=== PATIENT | male | born 1950 | race Caucasian/White ===

== ENCOUNTER → 2018-03-24 | Outpatient (CLI) | payer OTHER ==
[~2018-03-24] MED LIST: ANTIVERT/2525 MG PO; CIPRO500 MG PO; FLAGYL500 MG PO; METFORMIN500 MG PO; MOTRIN400 MG PO; ZESTRIL,PRINIVI10 MG PO; ZITHROMAX Z PA250 MG PO
== END | disposition home or self-care (01) ==
LOC: RAD 08:37
DX: M25.552 Pain in left hip (principal)

== ENCOUNTER → 2018-12-21 | Day surgery (SDC) | payer OTHER ==
[~2018-12-21] VITALS: Ht 168 cm; Wt 83.0 kg
[~2018-12-21] MED LIST changes: +AMLODIPINE BESY10 MG PO; +AMLODIPINE BESYL5 MG PO; +ASPIRIN81 M1 PO; +CELECOXIB200 M1 PO; +ELIQUIS5 M1 PO; +GLIMEPIRIDE4 M1 PO; +GOOD NEIGHBOR M25 M1 PO; +LISINOPRIL30 MG PO; +LOPRESSOR25 MG PO; +METFORMIN HCL1000 M1 PO; +METFORMIN HYDR500 MG PO; +METOPROLOL25 MG PO; +PROPAFENONE HC150 MG PO; +VALIUM2 MG PO; +VITAMIN D32000 UNI1 PO; +Zestril,Prinivi40 MG PO
--- NOTE | ~2018-12-21 | O ---
[place], [place] OPERATIVE NOTE NAME: BRENDA ALSTON UNIT #: [id number] ROOM: DOCTOR: MICHELLE GARCIA MD BIRTHDATE: [birth year] DOS: GASTROENDOSCOPIC REPORT: INDICATION: This is a 68-year-old patient who was presented with chief complaint of diarrhea, status post sigmoid segmental resection status post 5 BM per day, history of diabetes, on metformin, which has been changed to extended release tablet. ALLERGIES: No known medication. FAMILY HISTORY: Noncontributory. PAST SURGICAL HISTORY: Gastric tumor bowel resection. PAST MEDICAL HISTORY: Hypertension, diabetes, hyperlipidemia, atrial fibrillation. SOCIAL HISTORY: Nonsmoker, nonalcohol consumer. PROCEDURE: Today's procedure part of investigation is colonoscopy plus random biopsy. PREMEDICATION: Propofol. SCOPE: Olympus folding colonoscope 10L video. REPORT: After putting the patient in left lateral position and application of lubricant to the scope, the scope was introduced. Thereafter, under direct visualization, advanced through the length of colon without difficulty. Base of the cecum explored, appendiceal orifice identified, ileocecal valve was defined, was gradually withdrawn from ascending, transverse, descending colon back to the sigmoid anatomy. Anastomotic site identified. Random biopsies of colon for collagenous colitis was obtained. The patient extubated, tolerated the procedure well. IMPRESSION: Normal colonoscopic examination, status post sigmoid resection. Otherwise, status post random biopsy ruling out collagenous colitis. Furthermore, the patient with a history of diabetes mellitus, on metformin, which could be responsible for his diarrhea stooling. PLAN AND DISCUSSION: We will change the metformin to metformin extended tablet 1000 mg b.i.d. Furthermore, if does not respond, then we will add Questran 1 pack a day. Furthermore, avoiding excessive dairy products if possible and clinical reassessment and routine followup with you in office, p.r.n. visit with us in GI Clinic. He is to start his Celebrex, aspirin and Eliquis from tomorrow. [place], [place] OPERATIVE NOTE NAME: BRENDA ALSTON UNIT #: [id number] ROOM: DO[facility]: [birth year] BRETT GARCIA MD CM:CAPOECORD:OPERATIVE NOTE 0845 BRETT GARCIA MD 12/21/18 0910 interface
[2018-12-21 07:54] VITALS: BP 194/87
[2018-12-21 08:39] VITALS: BP 123/56
[2018-12-21 09:10] VITALS: BP 141/73
== END | disposition home or self-care (01) ==
LOC: SDC 12-19 14:45
DX: K63.89 Other specified diseases of intestine (principal); I10 Essential (primary) hypertension; I25.10 Atherosclerotic heart disease of native coronary artery without angina pectoris; E11.9 Type 2 diabetes mellitus without complications; I25.2 Old myocardial infarction; J45.909 Unspecified asthma, uncomplicated; Z79.82 Long term (current) use of aspirin; Z98.890 Other specified postprocedural states; Z79.899 Other long term (current) drug therapy; Z90.49 Acquired absence of other specified parts of digestive tract; Z83.3 Family history of diabetes mellitus

== ENCOUNTER 2019-04-05 22:17 | Emergency (ER) | payer OTHER ==
[~2019-04-05] VITALS: Ht 167.6 cm; Wt 83.9 kg
--- NOTE | ~2019-04-05 | EKG ---
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
[~2019-04-05 22:17] MED LIST changes: -VALIUM2 MG PO
[2019-04-05 22:41] LABS: BASO % 0.5 % (0.0-1.0); EOS # 0.2 10*3/uL (0.0-0.4); EOS % 2.7 % (1.0-4.0); HEMATOCRIT 38.5 % (42.0-52.0); HEMOGLOBIN 12.1 g/dl (14.0-18.0); LYMPH # 2.4 10*3/uL (1.3-4.4); LYMPH % 32.4 % (27.0-41.0); MEAN CELL VOLUME 72.6 fl (80.0-94.0); MEAN CORPUSCULAR HGB 22.8 pg (27.0-31.0); MEAN CORPUSCULAR HGB CONC 31.4 g/dl (33.0-37.0); MEAN PLATELET VOLUME 10.4 fl (9.6-12.3); MONO # 0.7 10*3/uL (0.1-1.0); MONO % 8.7 % (3.0-9.0); NEUT # 4.1 10*3/uL (2.3-7.9); NEUT % 54.9 % (47.0-73.0); PLATELET COUNT AUTOMATED 223 10*3/uL (130-400); RED CELL DISTRI WIDTH 14.9 % (0-14.5); WHITE BLOOD COUNT 7.5 10*3/uL (4.8-10.8)
[2019-04-05 22:51] LABS: ACT PARTIAL THROMBO TIME 23.7 SECONDS (20.0-32.1)
[2019-04-05 22:58] LABS: ALKALINE PHOSPHATASE 66 U/L (45-117); BUN 25 mg/dl (7-24); CHLORIDE 104 mmol/L (98-107); CREATININE 1.45 mg/dL (0.70-1.30); POTASSIUM 3.7 mmol/L (3.5-5.1); SGOT/AST 15 IU/L (3-35); SGPT/ALT 24 U/L (12-78); SODIUM 139 mmol/L (136-145); TOTAL PROTEIN 7.4 gm/dL (6.4-8.2)
[2019-04-05 22:59] LABS: TROPONIN I < 0.015 ng/ml (<0.045)
[2019-04-06] MEDS ORDERED: VALIUM2 MG PO (00:54)
== END 2019-04-06 01:10 | disposition home or self-care (01) ==
LOC: ED 22:17
PROVIDERS: Emergency Medicine
DX: R42 Dizziness and giddiness (principal); R11.2 Nausea with vomiting, unspecified; R79.1 Abnormal coagulation profile; Z79.899 Other long term (current) drug therapy

== ENCOUNTER 2019-06-09 20:34 | Inpatient (IN) | payer OTHER ==
[~2019-06-09] VITALS: Ht 167.6 cm; Wt 79.6 kg
--- NOTE | ~2019-06-09 | O ---
[place], [place] OPERATIVE NOTE NAME: BRENDA ALSTON UNIT #: [id number] ROOM: 520 DOCTOR: RADHA MAI,BRETT BIRTHDATE: [birth year] DOS: 06/12/2019 GASTROENDOSCOPIC REPORT INDICATIONS: The patient has presented with chief complaint of hematemesis. The patient with gastric resection partially, details are ambiguous due to the difficulty in his memory. His does not remember much of the details. PROCEDURE: Today's procedure part of investigation is panendoscopy plus biopsy, photographic series. PREMEDICATION: Propofol. SCOPE: Olympus forward-viewing gastroscope Q10 video. REPORT: After putting the patient in left lateral position and application of lubricant to the scope, the scope was introduced. Thereafter, under direct visualization, advanced through the length of esophagus without difficulty. Gastric pouch was entered. A partial gastrectomy was noticed. Bile reflux gastritis in proximal stomach identified. Biopsy was obtained. Duodenum within normal limits. The scope was gradually withdrawn. The patient extubated, tolerated the procedure well. IMPRESSION: Partial gastrectomy, bile reflux gastritis, status post biopsy. PLAN AND DISCUSSION: Protonix 1 a day, antireflux measures with elevation of the head of bed 6 inches all time, followup as an outpatient. BRETT GARCIA MD CM:OPRECORD:OPERATIVE NOTE 1343 1417 BRETT GARCIA MD 06/12/19 1416 interface
--- NOTE | ~2019-06-09 | EKG ---
[place], [place] ELECTROCARDIOGRAM REPORT NAME: BRENDA ALSTON UNIT #: [id number] ROOM: 520 DOCTOR: CARLITA DRAFT REPORT BIRTHDATE: [birth year] [facility] Test Date: 2019-06-09 Test Time: 20:51:18 Pat Name: BRENDA ALSTON Department: Room: 520 Gender: M Patient Service Coordinator: Jessie Jean-Baptiste : 1950 Requested By: ALTAGRACIA FAM Order Number: [id number] Reading MD: Paras Hall Measurements Intervals [place] Rate: 57 P: 8 MT: 241 QRS: -31 QRSD: 100 T: 111 QT: 439 QTc: 428 Interpretive Statements Sinus rhythm Prolonged MT interval Left axis deviation Nonspecific T abnormalities, lateral leads Compared to ECG 04/05/2019 22:28:18 Left-axis deviation now present T-wave abnormality now present Myocardial infarct finding no longer present Electronically Signed On 06-10-2019 12:32:04 PDT by Paras Hall CM:EKGRPT:ELECTROCARDIOGRAM REPORT 50 1232 ALTAGRACIA FAM MD EPIPHANY DRAFT REPORT ALTAGRACIA FAM MD
--- NOTE | ~2019-06-09 | CON ---
[place], [place] REPORT OF CONSULTATION NAME: BRENDA ALSTON UNIT #: [id number] ROOM: 520 DOCTOR: GERALD GARCIA MDDATELANDMERRY BIRTHDATE: [birth year] DOS: 06/12/2019 GASTROENDOSCOPIC REPORT HISTORY OF PRESENT ILLNESS: The patient is a 68-year-old gentleman who has presented with multiple medical issues among with suspected hematemesis and I have been called in this regard. Initially when he came in, his H and H. was 11 and 38, macrocytic indices. Urinalysis unremarkable. INR 1.1. Lactic acid was 13.3. BUN was 64 and creatinine 2.2, GFR 35. Electrolytes: Potassium was elevated. Liver function tests normal. His H and H remained essentially the same area 10 and 35 about. MRI of the hip, minimal degenerative changes of femoroacetabular joint. Left hip, question of inflammatory erosion of the head of the left femur. All has been appreciated. PAST MEDICAL HISTORY: Associated diabetes, hypertension, Meniere's disease, anemia, diverticulosis, renal insufficiency, and atrial fibrillation. PAST SURGICAL HISTORY: Gastrectomy, partial; throat surgery, and colon resection. SOCIAL HISTORY: Nonsmoker, nonalcohol consumer. FAMILY HISTORY: Noncontributory. MEDICATIONS: List has been reviewed including Celebrex and Eliquis. ALLERGIES: No known medication. REVIEW OF SYSTEMS: HEENT: Denies double vision, blurred vision. RESPIRATORY: Denies acute shortness of breath. CARDIOVASCULAR: Denies acute chest pain. DIGESTIVE SYSTEM: Hematemesis. PHYSICAL EXAMINATION: VITAL SIGNS: Stable. HEENT: Head normocephalic, nontraumatic. Mouth and buccal mucosa benign. NECK: Supple, no thyromegaly, no cervical lymphadenopathy. CHEST: Symmetric anatomy, equal expansion. No wheeze, no rhonchi. HEART: Normal sinus rhythm, no gallop, no murmur. ABDOMEN: Soft. No hepato-organomegaly. Bowel sounds present. EXTREMITIES: No cyanosis, no pedal edema. NEUROLOGIC: Alert and oriented to time, place, and person. IMPRESSION: Nausea, vomiting on Celebrex, on antiplatelets and anticoagulants, status post gastric surgery, ruling out anastomotic site, pathology, i.e., ulceration. Other adjunctive diagnoses as outlined in paragraph of past medical, surgical history including Meniere's disease, left hip pain, anemia, atrial fibrillation and history of vertigo, electrolyte imbalance, renal insufficiency, all has been recognized. [place], [place] REPORT OF CONSULTATION NAME: BRENDA ALSTON UNIT #: [id number] ROOM: [facility] DOCTOR: BRETT GARCIA MD BIRTHDATE: [birth year] PLAN AND DISCUSSION: Endoscopy of upper tract. BRETT GARCIA MD CM:CONSTR:REPORT OF CONSULTATION 1302 1002 JACKIE LIMON.R
[~2019-06-09 20:34] MED LIST changes: +VALIUM2 MG PO
[2019-06-09 20:35] VITALS: BP 182/89
[2019-06-09 21:22] LABS: BASO % 0.5 % (0.0-1.0); EOS # 0.1 10*3/uL (0.0-0.4); EOS % 1.7 % (1.0-4.0); HEMOGLOBIN 11.7 g/dl (14.0-18.0); LYMPH # 1.4 10*3/uL (1.3-4.4); LYMPH % 21.3 % (27.0-41.0); MEAN CELL VOLUME 72.4 fl (80.0-94.0); MEAN CORPUSCULAR HGB 22.3 pg (27.0-31.0); MEAN CORPUSCULAR HGB CONC 30.8 g/dl (33.0-37.0); MEAN PLATELET VOLUME 10.5 fl (9.6-12.3); MONO # 0.5 10*3/uL (0.1-1.0); MONO % 7.1 % (3.0-9.0); NEUT # 4.4 10*3/uL (2.3-7.9); NEUT % 69.1 % (47.0-73.0); PLATELET COUNT AUTOMATED 211 10*3/uL (130-400); RED BLOOD COUNT 5.25 10*6/uL (4.50-5.90); RED CELL DISTRI WIDTH 14.4 % (0-14.5); WHITE BLOOD COUNT 6.4 10*3/uL (4.8-10.8)
[2019-06-09 21:23] LABS: BILIRUBIN NEGATIVE (NEGATIVE); BLOOD TRACE-INTACT (NEGATIVE); CLARITY CLEAR (CLEAR); COLOR YELLOW (YELLOW); GLUCOSE NEGATIVE (NEGATIVE); KETONE TRACE (NEGATIVE); LEUKO ESTERASE NEGATIVE (NEGATIVE); NITRITE NEGATIVE (NEGATIVE); PH 5.5 (5.0-9.0); SPECIFIC GRAVITY 1.025 (1.005-1.030); UROBILINOGEN 0.2 E.U./dl (0.2-1.0)
[2019-06-09 21:28] LABS: EPITHELIAL CELLS 0-2; RBC 0-2 rbc/hpf (0-2)
[2019-06-09 21:40] LABS: ALBUMIN 3.8 gm/dl (3.1-4.5); ALKALINE PHOSPHATASE 68 U/L (45-117); BUN 64 mg/dl (7-24); CHLORIDE 109 mmol/L (98-107); CREATININE 2.23 mg/dL (0.70-1.30); LIPASE 270 U/L (73-393); POTASSIUM 5.3 mmol/L (3.5-5.1); SGOT/AST 11 IU/L (3-35); SGPT/ALT 14 U/L (12-78); SODIUM 138 mmol/L (136-145)
[2019-06-09 21:42] LABS: TROPONIN I < 0.015 ng/ml (<0.045)
[2019-06-10] VITALS: BP 108/53
[2019-06-10] MEDS ORDERED: K-TAB10 MEQ PO (02:28)
[2019-06-10] MEDS ORDERED: TRIAMTERENE-HC1 EACH PO (02:29)
[2019-06-10 06:09] LABS: BASO % 0.7 % (0.0-1.0); EOS # 0.1 10*3/uL (0.0-0.4); EOS % 1.8 % (1.0-4.0); HEMOGLOBIN 10.8 g/dl (14.0-18.0); LYMPH # 2.3 10*3/uL (1.3-4.4); LYMPH % 37.1 % (27.0-41.0); MEAN CELL VOLUME 72.6 fl (80.0-94.0); MEAN CORPUSCULAR HGB 22.4 pg (27.0-31.0); MEAN CORPUSCULAR HGB CONC 30.9 g/dl (33.0-37.0); MEAN PLATELET VOLUME 10.7 fl (9.6-12.3); MONO # 0.5 10*3/uL (0.1-1.0); MONO % 7.7 % (3.0-9.0); NEUT # 3.2 10*3/uL (2.3-7.9); NEUT % 52.5 % (47.0-73.0); PLATELET COUNT AUTOMATED 207 10*3/uL (130-400); RED BLOOD COUNT 4.82 10*6/uL (4.50-5.90); RED CELL DISTRI WIDTH 14.3 % (0-14.5); WHITE BLOOD COUNT 6.1 10*3/uL (4.8-10.8)
[2019-06-10 06:22] LABS: ALBUMIN 3.6 gm/dl (3.1-4.5); POTASSIUM 4.8 mmol/L (3.5-5.1)
[2019-06-10 06:26] LABS: CREATININE 1.93 mg/dL (0.70-1.30); PHOSPHOROUS 4.3 mg/dL (2.5-4.9); TOTAL PROTEIN 6.6 gm/dL (6.4-8.2)
[2019-06-10 08:00] VITALS: BP 110/62
[2019-06-10 08:38] LABS: VITAMIN D, 25-HYDROXY 16.9 ng/mL (30-100)
[2019-06-10 12:00] VITALS: BP 125/69
[2019-06-10 16:00] VITALS: BP 132/70
[2019-06-10 20:00] VITALS: BP 135/72
[2019-06-11] VITALS: BP 125/87
[2019-06-11 06:38] LABS: BASO % 0.7 % (0.0-1.0); EOS # 0.1 10*3/uL (0.0-0.4); EOS % 3.3 % (1.0-4.0); HEMATOCRIT 35.2 % (42.0-52.0); HEMOGLOBIN 10.6 g/dl (14.0-18.0); LYMPH # 1.1 10*3/uL (1.3-4.4); LYMPH % 27.1 % (27.0-41.0); MEAN CELL VOLUME 73.3 fl (80.0-94.0); MEAN CORPUSCULAR HGB 22.1 pg (27.0-31.0); MEAN CORPUSCULAR HGB CONC 30.1 g/dl (33.0-37.0); MEAN PLATELET VOLUME 10.4 fl (9.6-12.3); MONO # 0.5 10*3/uL (0.1-1.0); MONO % 11.4 % (3.0-9.0); NEUT # 2.4 10*3/uL (2.3-7.9); NEUT % 57.3 % (47.0-73.0); PLATELET COUNT AUTOMATED 191 10*3/uL (130-400); RED CELL DISTRI WIDTH 14.3 % (0-14.5); WHITE BLOOD COUNT 4.2 10*3/uL (4.8-10.8)
[2019-06-11 06:58] LABS: CREATININE 1.59 mg/dL (0.70-1.30); POTASSIUM 4.9 mmol/L (3.5-5.1)
[2019-06-11 08:00] VITALS: BP 149/75
[2019-06-11 12:00] VITALS: BP 151/71
[2019-06-11 16:00] VITALS: BP 189/79
[2019-06-11 17:00] VITALS: BP 170/80
[2019-06-11 20:00] VITALS: BP 199/80
[2019-06-12] VITALS (8 sets, daily range): BP systolic 115–172; BP diastolic 43–83
[2019-06-12 06:23] LABS: CREATININE 1.45 mg/dL (0.70-1.30); POTASSIUM 4.4 mmol/L (3.5-5.1)
[2019-06-12 06:35] LABS: BASO % 0.8 % (0.0-1.0); EOS # 0.1 10*3/uL (0.0-0.4); EOS % 2.6 % (1.0-4.0); HEMATOCRIT 33.6 % (42.0-52.0); HEMOGLOBIN 10.4 g/dl (14.0-18.0); LYMPH # 1.1 10*3/uL (1.3-4.4); LYMPH % 28.9 % (27.0-41.0); MEAN CELL VOLUME 72.7 fl (80.0-94.0); MEAN CORPUSCULAR HGB 22.5 pg (27.0-31.0); MEAN PLATELET VOLUME 11.3 fl (9.6-12.3); MONO # 0.5 10*3/uL (0.1-1.0); MONO % 11.6 % (3.0-9.0); NEUT # 2.2 10*3/uL (2.3-7.9); NEUT % 55.8 % (47.0-73.0); PLATELET COUNT AUTOMATED 193 10*3/uL (130-400); RED BLOOD COUNT 4.62 10*6/uL (4.50-5.90); RED CELL DISTRI WIDTH 14.3 % (0-14.5); WHITE BLOOD COUNT 3.9 10*3/uL (4.8-10.8)
[2019-06-13] VITALS: BP 130/71
[2019-06-13 06:32] LABS: BASO % 0.7 % (0.0-1.0); EOS # 0.2 10*3/uL (0.0-0.4); EOS % 3.9 % (1.0-4.0); HEMATOCRIT 32.8 % (42.0-52.0); HEMOGLOBIN 10.1 g/dl (14.0-18.0); LYMPH # 1.2 10*3/uL (1.3-4.4); LYMPH % 29.7 % (27.0-41.0); MEAN CELL VOLUME 73.5 fl (80.0-94.0); MEAN CORPUSCULAR HGB 22.6 pg (27.0-31.0); MEAN CORPUSCULAR HGB CONC 30.8 g/dl (33.0-37.0); MEAN PLATELET VOLUME 9.9 fl (9.6-12.3); MONO # 0.5 10*3/uL (0.1-1.0); MONO % 12.1 % (3.0-9.0); NEUT # 2.2 10*3/uL (2.3-7.9); NEUT % 53.4 % (47.0-73.0); PLATELET COUNT AUTOMATED 177 10*3/uL (130-400); RED BLOOD COUNT 4.46 10*6/uL (4.50-5.90); RED CELL DISTRI WIDTH 14.3 % (0-14.5); WHITE BLOOD COUNT 4.1 10*3/uL (4.8-10.8)
[2019-06-13 06:48] LABS: CREATININE 1.45 mg/dL (0.70-1.30); POTASSIUM 4.1 mmol/L (3.5-5.1)
[2019-06-13 08:00] VITALS: BP 181/80
[2019-06-13 08:10] VITALS: BP 180/86
[2019-06-13 10:38] VITALS: BP 172/84
[2019-06-13 11:55] VITALS: BP 142/78
[2019-06-13 12:00] VITALS: BP 159/69
[2019-06-13] MEDS ORDERED: PROTONIX40 MG PO (13:28)
[2019-06-13] MEDS ORDERED: AMLODIPINE BESYL5 MG PO (13:28)
[2019-06-13] MEDS ORDERED: VITAMIN D32000 UNI1 PO (13:28)
[2019-06-13] MEDS ORDERED: WALKER DEVI (13:28)
== END 2019-06-13 14:25 | disposition home or self-care (01) | DRG 377 ==
LOC: ED 20:34 → 5E 21:52 → EDHOLD 21:52 → 5E 22:19
PROVIDERS: Emergency Medicine Emergency Medical Services; Family Medicine; Student in an Organized Health Care Education/Training Program; ADMIT Emergency Medicine
PROC: 0DB68ZX Excision of Stomach, Via Natural or Artificial Opening Endoscopic, Diagnostic (ICD-10-PCS; principal; 2019-06-12)
DX: K29.71 Gastritis, unspecified, with bleeding (principal); N17.0 Acute kidney failure with tubular necrosis; I10 Essential (primary) hypertension; D72.810 Lymphocytopenia; E86.0 Dehydration; E87.5 Hyperkalemia; E87.8 Other disorders of electrolyte and fluid balance, not elsewhere classified; E11.65 Type 2 diabetes mellitus with hyperglycemia; E83.41 Hypermagnesemia; R31.21 Asymptomatic microscopic hematuria; I48.0 Paroxysmal atrial fibrillation; D50.9 Iron deficiency anemia, unspecified; M67.959 Unspecified disorder of synovium and tendon, unspecified thigh; K21.9 Gastro-esophageal reflux disease without esophagitis; K57.91 Diverticulosis of intestine, part unspecified, without perforation or abscess with bleeding; M16.12 Unilateral primary osteoarthritis, left hip; S76.012A Strain of muscle, fascia and tendon of left hip, initial encounter; X58.XXXA Exposure to other specified factors, initial encounter; Z79.84 Long term (current) use of oral hypoglycemic drugs; Z79.899 Other long term (current) drug therapy; Z90.49 Acquired absence of other specified parts of digestive tract; Z82.49 Family history of ischemic heart disease and other diseases of the circulatory system; Z83.3 Family history of diabetes mellitus; Y93.89 Activity, other specified; Y92.89 Other specified places as the place of occurrence of the external cause; Y99.8 Other external cause status

== ENCOUNTER 2019-08-01 04:41 | Inpatient (IN) | payer OTHER ==
[2019-08-01] VITALS (8 sets, daily range): BP systolic 108–154; BP diastolic 61–77
[~2019-08-01] VITALS: Ht 167.6 cm; Wt 79.8 kg
[~2019-08-01 04:41] MED LIST changes: +K-TAB10 MEQ PO; +PROTONIX40 MG PO; +TRIAMTERENE-HC1 EACH PO; +WALKER DEVI
--- NOTE | 2019-08-01 04:45 | NUR ---
PT TO TREATMENT ROOM VIA EMS, ASSESSMENT COMPLETE, CALL CARRERA GIVEN, PT IN NO ACUTE DISTRESS, WAITING TO BE SEEN BY MD
--- NOTE | 2019-08-01 04:46 | NUR ---
PT PLACED ON CONTINUOUS PULSE OX
[2019-08-01] MEDS ORDERED: ASPIRIN CHEWABL81 MG PO (04:51)
[2019-08-01] MEDS ORDERED: CELECOXIB200 M1 PO (04:52)
--- NOTE | 2019-08-01 04:52 | NUR ---
MD IN TO EVALUATE PT
[2019-08-01 05:08] LABS: BASO % 0.3 % (0.0-1.0); EOS # 0.1 10*3/uL (0.0-0.4); EOS % 1.3 % (1.0-4.0); HEMATOCRIT 36.2 % (42.0-52.0); HEMOGLOBIN 11.2 g/dl (14.0-18.0); LYMPH # 1.5 10*3/uL (1.3-4.4); LYMPH % 16.7 % (27.0-41.0); MEAN CELL VOLUME 72.3 fl (80.0-94.0); MEAN CORPUSCULAR HGB 22.4 pg (27.0-31.0); MEAN CORPUSCULAR HGB CONC 30.9 g/dl (33.0-37.0); MEAN PLATELET VOLUME 9.8 fl (9.6-12.3); MONO # 0.7 10*3/uL (0.1-1.0); MONO % 7.4 % (3.0-9.0); NEUT # 6.4 10*3/uL (2.3-7.9); NEUT % 73.6 % (47.0-73.0); PLATELET COUNT AUTOMATED 232 10*3/uL (130-400); RED BLOOD COUNT 5.01 10*6/uL (4.50-5.90); RED CELL DISTRI WIDTH 15.5 % (0-14.5); WHITE BLOOD COUNT 8.7 10*3/uL (4.8-10.8)
--- NOTE | 2019-08-01 05:13 | NUR ---
EKG COMPLETE ORDERED
[2019-08-01 05:25] LABS: ALBUMIN 4.1 gm/dl (3.1-4.5); ALKALINE PHOSPHATASE 60 U/L (45-117); BUN 65 mg/dl (7-24); CHLORIDE 107 mmol/L (98-107); POTASSIUM 5.4 mmol/L (3.5-5.1); SGOT/AST 11 IU/L (3-35); SGPT/ALT 21 U/L (12-78); SODIUM 136 mmol/L (136-145); TOTAL PROTEIN 7.6 gm/dL (6.4-8.2)
[2019-08-01 05:32] LABS: TROPONIN I < 0.015 ng/ml (<0.045)
--- NOTE | 2019-08-01 05:33 | NUR ---
CLEAN CATCH UA OBTAINED AND SENT TO LAB, CLEAR, YELLOW URINE NOTED
--- NOTE | 2019-08-01 05:34 | NUR ---
LACTATE RECEIVED FROM LAB 3.7, MADE AWARE
[2019-08-01 05:42] LABS: BILIRUBIN NEGATIVE (NEGATIVE); BLOOD NEGATIVE (NEGATIVE); CLARITY CLEAR (CLEAR); COLOR YELLOW (YELLOW); GLUCOSE 3+ (NEGATIVE); KETONE NEGATIVE (NEGATIVE); LEUKO ESTERASE NEGATIVE (NEGATIVE); NITRITE NEGATIVE (NEGATIVE); SPECIFIC GRAVITY 1.015 (1.005-1.030); UROBILINOGEN 0.2 E.U./dl (0.2-1.0)
--- NOTE | 2019-08-01 05:43 | NUR ---
NAUSEA IMPROVING, CALL CARRERA IN REACH
[2019-08-01 05:49] LABS: BACTERIA TRACE; WBC 0-2 wbc/hpf (0-5)
--- NOTE | 2019-08-01 06:05 | NUR ---
MD IN AT BEDSIDE TO RE-EVALUATE PT
--- NOTE | 2019-08-01 06:34 | NUR ---
CT COMPLETE ORDERED
--- NOTE | 2019-08-01 07:06 | NUR ---
REPORT TO CHEL ARGUETA, CARE TRANSFERRED
--- NOTE | 2019-08-01 08:00 | NUR ---
LAB CALLED PT REPEAT LACTIC ACID OF 3.1 (WAS 3.7),DR BROWN MADE AWARE.STILL AWAITING PT BED.--PRINCE DE LA FUENTE RN
--- NOTE | 2019-08-01 08:11 | NUR ---
NO ADMISSION BED YET FOR THIS PT.---PRINCE DE LA FUENTE RN
--- NOTE | 2019-08-01 09:03 | NUR ---
CCAA 68, admitted to , under the services of AMAURY Padron DO with a diagnosis of DIZZINESS, N/V. Chief complaint is NAUSEA. Patient arrived via bed from ER. Monitor applied. Initial assessment completed. Vital signs taken and recorded. AMAURY PADRON DO notified of admission to the unit. Orders received. See assessment for past medical history, medications and allergies. Patient and/or family oriented to unit. [facility]. Clothing/patient valuable form completed. MARY LOU RANKIN
--- NOTE | 2019-08-01 09:45 | NUR ---
NOTIFIED DR. HATHAWAY OF CRITICAL LAB VALUE.
--- NOTE | 2019-08-01 10:13 | NUR ---
DR. VALLEJO NOTIFIED OF CONSULT.
[2019-08-01 14:16] LABS: BILIRUBIN NEGATIVE (NEGATIVE); BLOOD NEGATIVE (NEGATIVE); CLARITY CLEAR (CLEAR); COLOR YELLOW (YELLOW); GLUCOSE TRACE (NEGATIVE); KETONE NEGATIVE (NEGATIVE); LEUKO ESTERASE NEGATIVE (NEGATIVE); NITRITE NEGATIVE (NEGATIVE); PH 5.5 (5.0-9.0); SPECIFIC GRAVITY 1.015 (1.005-1.030); UROBILINOGEN 0.2 E.U./dl (0.2-1.0)
[2019-08-01 14:24] LABS: URINE CREATININE RANDOM 64.4 mg/dL
[2019-08-02] VITALS: BP 113/65
--- NOTE | 2019-08-02 02:04 | NUR ---
24 HR chart check completed.
[2019-08-02 05:30] VITALS: BP 126/68
[2019-08-02 06:32] LABS: BASO % 0.6 % (0.0-1.0); EOS # 0.1 10*3/uL (0.0-0.4); EOS % 2.6 % (1.0-4.0); HEMATOCRIT 33.6 % (42.0-52.0); HEMOGLOBIN 10.4 g/dl (14.0-18.0); LYMPH # 1.6 10*3/uL (1.3-4.4); LYMPH % 29.7 % (27.0-41.0); MEAN CELL VOLUME 71.9 fl (80.0-94.0); MEAN CORPUSCULAR HGB 22.3 pg (27.0-31.0); MEAN PLATELET VOLUME 10.2 fl (9.6-12.3); MONO # 0.5 10*3/uL (0.1-1.0); MONO % 8.7 % (3.0-9.0); NEUT # 3.1 10*3/uL (2.3-7.9); NEUT % 57.7 % (47.0-73.0); PLATELET COUNT AUTOMATED 216 10*3/uL (130-400); RED BLOOD COUNT 4.67 10*6/uL (4.50-5.90); RED CELL DISTRI WIDTH 15.7 % (0-14.5); WHITE BLOOD COUNT 5.4 10*3/uL (4.8-10.8)
[2019-08-02 06:43] LABS: ALBUMIN 3.5 gm/dl (3.1-4.5); CREATININE 1.44 mg/dL (0.70-1.30); PHOSPHOROUS 2.7 mg/dL (2.5-4.9); POTASSIUM 4.5 mmol/L (3.5-5.1); TOTAL PROTEIN 6.4 gm/dL (6.4-8.2)
[2019-08-02 06:49] LABS: THYROID STIM HORMONE (HS) 4.25 uIU/ml (0.358-4.75)
[2019-08-02 07:00] LABS: ACT PARTIAL THROMBO TIME 26.1 SECONDS (20.0-32.1)
[2019-08-02 08:00] VITALS: BP 138/68
--- NOTE | 2019-08-02 09:00 | NUR ---
Marketing Compliance Manager in to talk to patient. Patient states lives at home with . There are few steps in the home. Physician: gómez Pharmacy: [facility] Home health services: none Patient's level of ADLs: INDEPENDENT Patient has working utilities: all working DME: walker Follow-up physician's appointment after d/c: will be made by hospitalist nurse director upon discharge Does patient want to access PORTAL?: no Discharge plan discussed with patient, present, he states he uses a walker occasionally and is independent in adls, he states he doesn't drive much anymore but his does, patient stated he would be returning home when medically stable and denies any home needs. NIALL DE LA GARZA
[2019-08-02 12:00] VITALS: BP 156/83
[2019-08-02] MEDS ORDERED: ZOFRAN4 MG PO (15:21)
[2019-08-02] MEDS ORDERED: VITAMIN D32000 UNI1 PO (15:21)
[2019-08-02] MEDS ORDERED: TRAD5TAB1 PO (15:22)
[2019-08-02 15:46] VITALS: BP 140/75
--- NOTE | 2019-08-02 16:47 | NUR ---
Discharge instructions reviewed with patient/family. Patient receptive and verbalizes understanding. Follow-up care arranged. Written instructions given to patient/family. GUILLERMO DUMONT
== END 2019-08-02 16:47 | disposition home or self-care (01) | DRG 683 ==
LOC: ED 04:41 → EDHOLD 06:56 → 4E 06:56
PROVIDERS: Emergency Medicine; Hospitalist; Internal Medicine Nephrology; ADMIT Internal Medicine
DX: N17.0 Acute kidney failure with tubular necrosis (principal); E87.2 Acidosis; E87.5 Hyperkalemia; D50.9 Iron deficiency anemia, unspecified; R81 Glycosuria; I10 Essential (primary) hypertension; I48.91 Unspecified atrial fibrillation; E11.9 Type 2 diabetes mellitus without complications; R00.1 Bradycardia, unspecified; Z79.84 Long term (current) use of oral hypoglycemic drugs; Z79.899 Other long term (current) drug therapy; Z79.82 Long term (current) use of aspirin; Z82.49 Family history of ischemic heart disease and other diseases of the circulatory system; Z83.3 Family history of diabetes mellitus

== ENCOUNTER 2019-08-03 22:44 | Emergency (ER) | payer OTHER ==
[~2019-08-03] VITALS: Ht 167.6 cm; Wt 79.4 kg
[~2019-08-03 22:44] MED LIST changes: +ASPIRIN CHEWABL81 MG PO; +TRAD5TAB1 PO; +ZOFRAN4 MG PO
[2019-08-04] MEDS ORDERED: VALIUM5 MG PO (01:49)
== END 2019-08-04 02:25 | disposition home or self-care (01) ==
LOC: ED 22:44
DX: H81.09 Meniere's disease, unspecified ear (principal); E11.9 Type 2 diabetes mellitus without complications; I10 Essential (primary) hypertension

== ENCOUNTER 2024-05-29 08:34 | Emergency (ER) | payer MEDICARE ==
[~2024-05-29] VITALS: Ht 167.6 cm; Wt 83.0 kg
[~2024-05-29 08:34] MED LIST changes: +VALIUM5 MG PO
[2024-05-29] MEDS ORDERED: METFORMIN HYDR500 MG PO (08:56)
[2024-05-29] MEDS ORDERED: ZETIA10 MG PO (08:57)
[2024-05-29] MEDS ORDERED: SERTRALINE HYDR50 MG PO (08:57)
[2024-05-29] MEDS ORDERED: WARFARIN SODIU2.5 MG PO (08:58)
[2024-05-29] MEDS ORDERED: WARFARIN SOD5 MG PO (08:58)
[2024-05-29] MEDS ORDERED: BUSPAR5 MG PO (08:59)
[2024-05-29 09:13] LABS: BILIRUBIN Negative (Negative); BLOOD 2+ (Negative); CLARITY Clear (Clear); COLOR Yellow (Yellow); GLUCOSE Trace (Negative); KETONE Negative (Negative); LEUKO ESTERASE Negative (Negative); NITRITE Negative (Negative); PH 5.5 (4.5-8.0); SPECIFIC GRAVITY 1.015 (1.001-1.030)
[2024-05-29 09:25] LABS: BASO % 0.4 % (0.0-1.0); EOS # 0.1 10*3/uL (0.0-0.4); EOS % 0.6 % (1.0-4.0); HEMATOCRIT 39.3 % (42.0-52.0); LYMPH # 1.8 10*3/uL (1.3-4.4); LYMPH % 23.2 % (27.0-41.0); MEAN CELL VOLUME 71.5 fl (80.0-94.0); MEAN CORPUSCULAR HGB 22.4 pg (27.0-31.0); MEAN CORPUSCULAR HGB CONC 31.3 g/dl (33.0-37.0); MEAN PLATELET VOLUME 9.1 fl (9.6-12.3); MONO # 0.6 10*3/uL (0.1-1.0); MONO % 8.2 % (3.0-9.0); NEUT # 5.3 10*3/uL (2.3-7.9); NEUT % 67.1 % (47.0-73.0); PLATELET COUNT AUTOMATED 256 10*3/uL (130-400); RED CELL DISTRI WIDTH 15.6 % (0-14.5); WHITE BLOOD COUNT 7.9 10*3/uL (4.8-10.8)
[2024-05-29 09:36] LABS: RBC 21-30 rbc/hpf (0-2); WBC 0-2 wbc/hpf (0-5)
[2024-05-29 09:36] LABS: ACT PARTIAL THROMBO TIME 41.4 SECONDS (20.0-32.1)
[2024-05-29 09:46] LABS: POTASSIUM 4.6 mmol/L (3.4-5.1); TOTAL PROTEIN 7.2 gm/dL (6.0-8.0)
[2024-05-29] MEDS ORDERED: IOHEXOL 350 MG/ML 100 ML VIAL IV ONE (10:10)
[2024-05-29] MEDS ORDERED: SODIUM CHLORIDE 0.9% 1,000 ML IV ONE (10:10)
[2024-05-29] MEDS ORDERED: busPIRone Hydrochloride 5 MG TAB PO ONE (13:20)
== END 2024-05-29 14:09 | disposition home or self-care (01) ==
LOC: ED 08:34
PROVIDERS: Internal Medicine
DX: R31.9 Hematuria, unspecified (principal); I48.91 Unspecified atrial fibrillation; J45.909 Unspecified asthma, uncomplicated; I10 Essential (primary) hypertension; E11.9 Type 2 diabetes mellitus without complications; I25.2 Old myocardial infarction; Z98.890 Other specified postprocedural states

== ENCOUNTER 2025-03-03 20:29 | Inpatient (IN) | payer MEDICARE ==
[~2025-03-03] VITALS: Ht 172.7 cm; Wt 80.3 kg
[~2025-03-03 20:29] MED LIST changes: +BUSPAR5 MG PO; +CEPHALEXIN500 M1 PO; +Coumadin2.5 MG PO; +Coumadin5 MG PO; +DIAZEPAM5 MG PO; +FINASTERIDE5 M1 PO; +LEVETIRACETAM500 MG PO; +SERTRALINE HYDR50 MG PO; +TAMSULOSIN HCL0.4 MG PO; +WARFARIN SOD5 MG PO; +WARFARIN SODIU2.5 MG PO; +ZETIA10 MG PO
[2025-03-03 20:31] VITALS: BP 179/78
[2025-03-03] MEDS ORDERED: SODIUM CHLORIDE 0.9% 1,000 ML IV ONE (20:40)
[2025-03-03 21:09] LABS: BASO % 0.2 % (0.0-1.0); EOS # 0.1 10*3/uL (0.0-0.4); EOS % 0.3 % (1.0-4.0); HEMATOCRIT 40.3 % (42.0-52.0); MEAN CELL VOLUME 72.1 fl (80.0-94.0); MEAN CORPUSCULAR HGB CONC 30.5 g/dl (33.0-37.0); MEAN PLATELET VOLUME 9.3 fl (9.6-12.3); MONO # 0.9 10*3/uL (0.1-1.0); MONO % 5.9 % (3.0-9.0); NEUT # 13.2 10*3/uL (2.3-7.9); NEUT % 86.8 % (47.0-73.0); PLATELET COUNT AUTOMATED 233 10*3/uL (130-400); RED BLOOD COUNT 5.59 10*6/uL (4.50-5.90); RED CELL DISTRI WIDTH 14.6 % (0-14.5); WHITE BLOOD COUNT 15.3 10*3/uL (4.8-10.8)
[2025-03-03 21:09] LABS: BILIRUBIN Negative (Negative); BLOOD 2+ (Negative); CLARITY Cloudy (Clear); COLOR Yellow (Yellow); GLUCOSE 1+ (Negative); KETONE Trace (Negative); LEUKO ESTERASE 2+ (Negative); NITRITE Negative (Negative)
[2025-03-03 21:15] VITALS: BP 168/76
[2025-03-03 21:20] LABS: BACTERIA 3+; MUCOUS 1+; RBC 16-20 rbc/hpf (0-2); WBC 41-50 wbc/hpf (0-5)
[2025-03-03 21:30] LABS: ALKALINE PHOSPHATASE 75 U/L (46-116); BUN 20 mg/dl (9-23); CHLORIDE 98 mmol/L (98-107); POTASSIUM 4.2 mmol/L (3.4-5.1); SGPT/ALT 19 U/L (5-49); TOTAL PROTEIN 7.2 gm/dL (6.0-8.0)
[2025-03-03 21:34] LABS: ETHYL ALCOHOL < 3.0 mg/dl (<3)
[2025-03-03 21:44] LABS: URINE AMPHETAMINES Negative (1000ng/ml); URINE BARBITURATES Negative (200ng/ml); URINE BENZODIAZEPINES Negative (200ng/ml); URINE CANNABINOIDS (THC) Negative (50ng/ml); URINE COCAINE Negative (300ng/ml); URINE METHADONE Negative (300ng/ml); URINE OPIATES Negative (300ng/ml); URINE PHENCYCLIDINE Negative (25ng/ml)
[2025-03-03 22:15] VITALS: BP 167/86
[2025-03-03] MEDS ORDERED: cefTRIAXone Sodium 1 GM/10 ML SYR IV ONE (22:35)
[2025-03-03 23:15] VITALS: BP 177/91
[2025-03-04] VITALS (7 sets, daily range): BP systolic 170–188; BP diastolic 81–98
[2025-03-04] MEDS ORDERED: Ondansetron Hydrochloride 4 MG/2 ML VIAL IV PRN (00:10)
[2025-03-04] MEDS ORDERED: MORPHINE Sulfate 2 MG/ML SYR IV PRN (00:10)
[2025-03-04] MEDS ORDERED: ACETAMINOPHEN 325 MG TAB PO PRN (00:10)
[2025-03-04] MEDS ORDERED: Acetaminophen/Hydrocodone 5 MG/325 MG TABLET PO PRN (00:10)
[2025-03-04] MEDS ORDERED: WARFARIN SODIUM 2.5 MG TAB PO SCH (18:00)
[2025-03-04] MEDS ORDERED: cefTRIAXone Sodium 1 GM VIAL ONE (21:38)
[2025-03-04] MEDS ORDERED: cefTRIAXone Sodium 1 GM in SYRINGE INFUSION 10 ML IV SCH (22:00)
[2025-03-05 02:58] VITALS: BP 153/89
[2025-03-05 06:36] VITALS: BP 159/84
[2025-03-05 06:38] LABS: BASO % 0.3 % (0.0-1.0); EOS % 0.2 % (1.0-4.0); HEMATOCRIT 38.9 % (42.0-52.0); MEAN CORPUSCULAR HGB 22.1 pg (27.0-31.0); MEAN CORPUSCULAR HGB CONC 31.1 g/dl (33.0-37.0); MEAN PLATELET VOLUME 10.1 fl (9.6-12.3); MONO % 6.5 % (3.0-9.0); NEUT # 12.2 10*3/uL (2.3-7.9); NEUT % 81.9 % (47.0-73.0); PLATELET COUNT AUTOMATED 232 10*3/uL (130-400); RED BLOOD COUNT 5.48 10*6/uL (4.50-5.90); RED CELL DISTRI WIDTH 15.1 % (0-14.5); WHITE BLOOD COUNT 14.9 10*3/uL (4.8-10.8)
[2025-03-05 06:52] LABS: ALKALINE PHOSPHATASE 71 U/L (46-116); BUN 16 mg/dl (9-23); CHLORIDE 100 mmol/L (98-107); POTASSIUM 3.8 mmol/L (3.4-5.1); SGPT/ALT 16 U/L (5-49); TOTAL PROTEIN 7.2 gm/dL (6.0-8.0)
[2025-03-05] MEDS ORDERED: diazePAM 5 MG TAB PO PRN (08:45)
[2025-03-05 09:28] VITALS: BP 161/84
[2025-03-05] MEDS ORDERED: busPIRone Hydrochloride 5 MG TAB PO SCH (10:00)
[2025-03-05] MEDS ORDERED: Tamsulosin Hydrochloride 0.4 MG CAP PO SCH (10:00)
[2025-03-05] MEDS ORDERED: ASPIRIN, CHEWABLE 81 MG TAB PO SCH (10:00)
[2025-03-05] MEDS ORDERED: LEVETIRACETAM 500 MG TAB PO SCH (10:00)
[2025-03-05] MEDS ORDERED: Sertraline Hydrochloride 50 MG TAB PO SCH (10:00)
[2025-03-05] MEDS ORDERED: Metoprolol Tartrate 25 MG TAB PO SCH (10:00)
[2025-03-05] MEDS ORDERED: amLODIPine besylate 10 MG TAB PO SCH (10:00)
[2025-03-05] MEDS ORDERED: EZETIMIBE 10 MG TAB PO SCH (10:00)
[2025-03-05] MEDS ORDERED: Cholecalciferol 2,000 UNIT TABLET (50 MCG) PO SCH (10:00)
[2025-03-05] MEDS ORDERED: FINASTERIDE 5 MG TAB PO SCH (10:00)
[2025-03-05] MEDS ORDERED: Benzocaine/Menthol 1 LOZ LOZENGE PO PRN (13:50)
[2025-03-05] MEDS ORDERED: Propafenone Hydrochloride 150 MG TAB PO SCH (14:00)
[2025-03-05 17:45] VITALS: BP 116/98
[2025-03-05 17:53] VITALS: BP 116/98
[2025-03-05 20:00] VITALS: BP 148/72
[2025-03-06] VITALS: BP 142/68
[2025-03-06 06:30] LABS: BASO % 0.3 % (0.0-1.0); EOS # 0.2 10*3/uL (0.0-0.4); EOS % 1.8 % (1.0-4.0); HEMATOCRIT 37.8 % (42.0-52.0); MEAN CELL VOLUME 71.9 fl (80.0-94.0); MEAN CORPUSCULAR HGB 21.9 pg (27.0-31.0); MEAN CORPUSCULAR HGB CONC 30.4 g/dl (33.0-37.0); MEAN PLATELET VOLUME 10.4 fl (9.6-12.3); MONO # 0.8 10*3/uL (0.1-1.0); MONO % 8.1 % (3.0-9.0); NEUT # 7.3 10*3/uL (2.3-7.9); NEUT % 74.8 % (47.0-73.0); PLATELET COUNT AUTOMATED 240 10*3/uL (130-400); RED BLOOD COUNT 5.26 10*6/uL (4.50-5.90); WHITE BLOOD COUNT 9.8 10*3/uL (4.8-10.8)
[2025-03-06 07:09] LABS: BUN 22 mg/dl (9-23); CHLORIDE 99 mmol/L (98-107); POTASSIUM 3.8 mmol/L (3.4-5.1)
[2025-03-06 08:00] VITALS: BP 136/84
[2025-03-06] MEDS ORDERED: Piperacillin Sodium/Tazobact 50 ML IV SCH (08:15)
[2025-03-06] MEDS ORDERED: Meropenem 1 GM in SODIUM CHLORIDE 0.9% 100 ML IV SCH (10:00)
[2025-03-06 12:00] VITALS: BP 138/71
[2025-03-06] MEDS ORDERED: PREMIERPRO RX ME1 GM IV (14:28)
[2025-03-06 16:00] VITALS: BP 124/81
[2025-03-06] MEDS ORDERED: Carbidopa/Levodopa 25/100MG 1 TAB TAB PO SCH (17:00)
[2025-03-06 20:00] VITALS: BP 152/75
[2025-03-07] VITALS: BP 159/77
[2025-03-07 06:46] LABS: BASO % 0.5 % (0.0-1.0); EOS # 0.3 10*3/uL (0.0-0.4); HEMATOCRIT 35.7 % (42.0-52.0); MEAN CELL VOLUME 72.6 fl (80.0-94.0); MEAN CORPUSCULAR HGB CONC 31.7 g/dl (33.0-37.0); MEAN PLATELET VOLUME 10.1 fl (9.6-12.3); MONO # 0.7 10*3/uL (0.1-1.0); MONO % 10.6 % (3.0-9.0); NEUT # 4.2 10*3/uL (2.3-7.9); NEUT % 65.6 % (47.0-73.0); PLATELET COUNT AUTOMATED 236 10*3/uL (130-400); RED BLOOD COUNT 4.92 10*6/uL (4.50-5.90); RED CELL DISTRI WIDTH 14.7 % (0-14.5); WHITE BLOOD COUNT 6.4 10*3/uL (4.8-10.8)
[2025-03-07 07:12] LABS: BUN 25 mg/dl (9-23); CHLORIDE 100 mmol/L (98-107); POTASSIUM 3.9 mmol/L (3.4-5.1)
[2025-03-07 08:00] VITALS: BP 157/78
[2025-03-07 12:00] VITALS: BP 155/70
[2025-03-07 16:00] VITALS: BP 156/87
[2025-03-07 20:00] VITALS: BP 139/80
[2025-03-08] VITALS: BP 176/68
[2025-03-08 00:45] VITALS: BP 154/77
[2025-03-08 06:16] LABS: BUN 23 mg/dl (9-23); CHLORIDE 100 mmol/L (98-107); POTASSIUM 3.8 mmol/L (3.4-5.1)
[2025-03-08 06:17] LABS: BASO % 0.5 % (0.0-1.0); EOS # 0.3 10*3/uL (0.0-0.4); EOS % 5.6 % (1.0-4.0); MEAN CELL VOLUME 72.3 fl (80.0-94.0); MEAN CORPUSCULAR HGB 22.3 pg (27.0-31.0); MEAN CORPUSCULAR HGB CONC 30.9 g/dl (33.0-37.0); MONO # 0.7 10*3/uL (0.1-1.0); MONO % 12.1 % (3.0-9.0); NEUT # 3.4 10*3/uL (2.3-7.9); NEUT % 60.8 % (47.0-73.0); PLATELET COUNT AUTOMATED 237 10*3/uL (130-400); RED CELL DISTRI WIDTH 14.4 % (0-14.5); WHITE BLOOD COUNT 5.6 10*3/uL (4.8-10.8)
[2025-03-08 08:00] VITALS: BP 157/84
[2025-03-08 12:00] VITALS: BP 140/73
[2025-03-08 16:00] VITALS: BP 148/79; BP 154/71
[2025-03-08 20:00] VITALS: BP 160/69
[2025-03-09] VITALS: BP 161/68
[2025-03-09 06:24] LABS: BASO % 0.5 % (0.0-1.0); EOS # 0.3 10*3/uL (0.0-0.4); EOS % 4.6 % (1.0-4.0); HEMATOCRIT 34.3 % (42.0-52.0); MEAN CELL VOLUME 71.8 fl (80.0-94.0); MEAN CORPUSCULAR HGB 22.2 pg (27.0-31.0); MEAN CORPUSCULAR HGB CONC 30.9 g/dl (33.0-37.0); MEAN PLATELET VOLUME 9.4 fl (9.6-12.3); MONO # 0.7 10*3/uL (0.1-1.0); MONO % 11.5 % (3.0-9.0); NEUT # 3.5 10*3/uL (2.3-7.9); PLATELET COUNT AUTOMATED 241 10*3/uL (130-400); RED BLOOD COUNT 4.78 10*6/uL (4.50-5.90); RED CELL DISTRI WIDTH 14.2 % (0-14.5); WHITE BLOOD COUNT 5.9 10*3/uL (4.8-10.8)
[2025-03-09 07:09] LABS: BUN 21 mg/dl (9-23); CHLORIDE 100 mmol/L (98-107); POTASSIUM 4.2 mmol/L (3.4-5.1)
[2025-03-09 08:00] VITALS: BP 151/74; BP 161/74
[2025-03-09] MEDS ORDERED: Rivastigmine Tartrate 4.6 MG/24 HR PATCH T SCH (10:00)
[2025-03-09 12:00] VITALS: BP 147/67
[2025-03-09 16:00] VITALS: BP 172/86
[2025-03-09] MEDS ORDERED: Carbidopa/Levodopa 25/100MG 1 TAB TAB PO SCH (17:00)
[2025-03-09 20:00] VITALS: BP 195/71
[2025-03-10] VITALS: BP 157/69
[2025-03-10 06:18] LABS: BASO % 0.6 % (0.0-1.0); EOS # 0.3 10*3/uL (0.0-0.4); EOS % 5.2 % (1.0-4.0); HEMATOCRIT 34.3 % (42.0-52.0); MEAN CELL VOLUME 72.5 fl (80.0-94.0); MEAN CORPUSCULAR HGB 22.2 pg (27.0-31.0); MEAN CORPUSCULAR HGB CONC 30.6 g/dl (33.0-37.0); MEAN PLATELET VOLUME 9.5 fl (9.6-12.3); MONO # 0.7 10*3/uL (0.1-1.0); MONO % 10.6 % (3.0-9.0); NEUT # 3.6 10*3/uL (2.3-7.9); NEUT % 56.2 % (47.0-73.0); PLATELET COUNT AUTOMATED 275 10*3/uL (130-400); RED BLOOD COUNT 4.73 10*6/uL (4.50-5.90); RED CELL DISTRI WIDTH 14.5 % (0-14.5); WHITE BLOOD COUNT 6.4 10*3/uL (4.8-10.8)
[2025-03-10 06:39] LABS: BUN 22 mg/dl (9-23); CHLORIDE 101 mmol/L (98-107); POTASSIUM 4.2 mmol/L (3.4-5.1)
[2025-03-10 08:12] VITALS: BP 190/71
[2025-03-10] MEDS ORDERED: SINEMET 25-1001 EACH PO (11:53)
[2025-03-10] MEDS ORDERED: RIVASTIGMINE1 EACH T (11:53)
[2025-03-10 12:00] VITALS: BP 145/66
== END 2025-03-10 14:10 | disposition home or self-care (01) | DRG 871 ==
LOC: ED 20:29 → EDHOLD 23:38 → 5E 23:38 → EDHOLD 03-05 13:47 → 5E 03-05 17:13
PROVIDERS: Internal Medicine; Student in an Organized Health Care Education/Training Program; ADMIT Internal Medicine; ATTEND Internal Medicine
PROC: 05HB33Z Insertion of Infusion Device into Right Basilic Vein, Percutaneous Approach (ICD-10-PCS; principal; 2025-03-06)
PROC: B54MZZA Ultrasonography of Right Upper Extremity Veins, Guidance (ICD-10-PCS; 2025-03-06)
DX: A41.89 Other specified sepsis (principal); G93.41 Metabolic encephalopathy; N39.0 Urinary tract infection, site not specified; E87.20 Acidosis, unspecified; E87.1 Hypo-osmolality and hyponatremia; Z16.12 Extended spectrum beta lactamase (ESBL) resistance; E87.6 Hypokalemia; D50.9 Iron deficiency anemia, unspecified; I10 Essential (primary) hypertension; R65.20 Severe sepsis without septic shock; E11.65 Type 2 diabetes mellitus with hyperglycemia; I48.0 Paroxysmal atrial fibrillation; G20.A1 Parkinson's disease without dyskinesia, without mention of fluctuations; Z79.01 Long term (current) use of anticoagulants; Z79.899 Other long term (current) drug therapy; Z85.46 Personal history of malignant neoplasm of prostate; Z79.2 Long term (current) use of antibiotics; Z90.49 Acquired absence of other specified parts of digestive tract; Z82.49 Family history of ischemic heart disease and other diseases of the circulatory system; Z83.3 Family history of diabetes mellitus; Z81.8 Family history of other mental and behavioral disorders